=== PATIENT | female | born 1960 | race American Indian/Alaskan Native ===

== ENCOUNTER 2016-11-09 10:09 | Day surgery (SDC) | payer BC ==
[2016-05-23 16:26] VITALS: BMI 41.5
[2016-11-09] MEDS ORDERED: Sodium Chloride 0.9% 500 ML IV ONE ×2 (12:51)
[2016-11-09 13:48] VITALS: TEMP 98.9
[2016-11-09 14:05] VITALS: RESP 18; O2SAT 97
[2016-11-09 14:44] VITALS: BP 133/73; PULSE 60
== END 2016-11-09 14:35 | disposition home or self-care (01) ==
LOC: C.ENDO 10:09
PROVIDERS: ATTEND Internal Medicine Gastroenterology
DX: D12.5 Benign neoplasm of sigmoid colon (principal); K57.30 Diverticulosis of large intestine without perforation or abscess without bleeding; K64.8 Other hemorrhoids; K29.70 Gastritis, unspecified, without bleeding; K44.9 Diaphragmatic hernia without obstruction or gangrene; K29.80 Duodenitis without bleeding; Z68.41 Body mass index [BMI] 40.0-44.9, adult
CPT/HCPCS: 43239; 45388; 88305; 88342; J7040

== ENCOUNTER 2017-10-06 12:20 | Emergency (ER) | payer BC ==
[2017-10-06 12:36] VITALS: BMI 40.7
[2017-10-06 12:37] VITALS: PULSE 71; RESP 18
--- NOTE | 2017-10-06 13:21 | C.PDOC ---
History Of Present Illness 57 y/o F p/w back pain that began after a fall yesterday. She is unsure how she fell but denies that it was due to lightheadedness. She states she now has pain of the R sided back from thoracic to lumbar, which is severe, mild without movement but severe when moving in various directions. She also reports frequent urination but states that existed prior to fall yesterday. She also report L knee pain since the fall. Denies fever, vomiting, urinary or bowel incontinence or retention, motor weakness, or numbness. Chief Complaint (Nursing): Back Pain Past Medical History Vital Signs: Last Vital Signs Temp 97.4 F L 10/06/17 16:14 Pulse 71 10/06/17 16:14 Resp 18 10/06/17 16:14 BP 121/83 10/06/17 16:14 Pulse Ox 100 10/06/17 16:14 - Medical History PMH: Arthritis (LEFT KNEE ), Asthma, Back Problems, Bronchitis, Colonic Polyps, Diabetes, Gastritis (Pt denies), Pneumonia (ABOUT IN 2009) Denies: Fractures, HTN (pt denies), Hypercholesterolemia (pt denies), Hypothyroidism (pt denies), Chronic Kidney Disease Surgical History: Hernia Repair - [facility] DPT ADMINISTRATION (04/08/15) ESOPHAGOGASTRODUODENOSCOPY [EGD] W/CLOSED BIOPSY (07/12/13) Family History: States: Unknown Family Hx - Social History Hx Tobacco Use: Yes Hx Alcohol Use: Yes Hx Substance Use: No - Immunization History Hx Tetanus Toxoid Vaccination: No Hx Influenza Vaccination: No Hx Pneumococcal Vaccination: No Review Of Systems Except As Marked, All Systems Reviewed And Found Negative. Constitutional: Negative for: Fever Respiratory: Negative for: Shortness of Breath Physical Exam - Physical Exam Additional Physical Exam Comments: Gen: NAD, sitting still. Exclaims when moving. Head: Atraumatic Eyes: No scleral icterus ENT: MMM Neck: No midline tenderness Chest: No tenderness CV: Regular rate Lungs: CTA b/l Back: No edema, rash, ecchymosis, or tenderness (midline or perispinal) Abd: Soft, NT Extremities: L knee tenderness Skin: As above Neuro: Moves all extremities ED Course And Treatment O2 Sat by Pulse Oximetry: 98 Medical Decision Making Medical Decision Making: Patient took Aleve 7 hours ago. Patient does not want any narcotic medications. Left knee x-ray FINDINGS: BONES: No radiographically apparent fracture. JOINTS: Tricompartmental osteoarthritis. JOINT EFFUSION: None. OTHER FINDINGS: None. IMPRESSION: Degenerative changes. Thoracic Spine x-ray FINDINGS: BONES: Alignment maintained. No compressive deformity. DISC SPACES: Normal. SOFT TISSUES: Normal. OTHER FINDINGS: Mild degenerative changes. IMPRESSION: No compressive deformity. Degenerative changes. Ribs x-ray FINDINGS: RIGHT RIBS: No fracture or focal lesion visualized. LUNGS: Clear. PLEURA: No pneumothorax or pleural fluid. CARDIOVASCULAR: Normal sized heart. No pulmonary vascular congestion. OTHER FINDINGS: Degenerative changes of the osseous structures. IMPRESSION: Unremarkable radiographs of the chest and right ribs. No right rib fracture. Lumbar Spine x-ray FINDINGS: BONES: No apparent fracture. Degenerative changes. DISC SPACES: Mild disc space narrowing at L5-S1. OTHER FINDINGS: Facet hypertrophy. IMPRESSION: Degenerative changes. No compressive deformity. Cross sectional imaging should be obtained if symptoms persist. Disposition - Disposition Referrals: Yo Polanco MD [Staff Provider] - Disposition: HOME/ ROUTINE Disposition Time: 15:48 Condition: STABLE Prescriptions: Ketorolac Tromethamine [Toradol] 1 tab PO Q6H #20 tab Instructions: Low Back Pain (DC), Preventing Falls Forms: [facility] (Khmer), Work Excuse - Clinical Impression Clinical Impression: Back pain
[2017-10-06 13:58] LABS: SQUAMOUS EPITHIAL < 1 /hpf (0-5); URINE BILIRUBIN NEGATIVE (NEGATIVE); URINE BLOOD NEGATIVE (NEGATIVE); URINE CLARITY Clear (Clear); URINE COLOR Straw (YELLOW); URINE GLUCOSE (UA) NORMAL (Normal); URINE LEUKOCYTE ESTERASE NEG Leu/uL (Negative); URINE PROTEIN NEGATIVE (NEGATIVE); URINE UROBILINOGEN NORMAL mg/dL (0.2-1.0)
--- NOTE | 2017-10-06 14:28 | RAD ---
PROCEDURE: Left Knee Radiographs. HISTORY: Pain. COMPARISON: 11/12/2014 FINDINGS: BONES: No radiographically apparent fracture. JOINTS: Tricompartmental osteoarthritis. JOINT EFFUSION: None. OTHER FINDINGS: None. IMPRESSION: Degenerative changes.
--- NOTE | 2017-10-06 14:30 | RAD ---
PROCEDURE: Radiographs of the Chest and Right Ribs. HISTORY: fall, back pain COMPARISON: None available. TECHNIQUE: Frontal radiograph of the chest and multiple oblique radiographs of the right ribs were obtained. FINDINGS: RIGHT RIBS: No fracture or focal lesion visualized. LUNGS: Clear. PLEURA: No pneumothorax or pleural fluid. CARDIOVASCULAR: Normal sized heart. No pulmonary vascular congestion. OTHER FINDINGS: Degenerative changes of the osseous structures. IMPRESSION: Unremarkable radiographs of the chest and right ribs. No right rib fracture.
--- NOTE | 2017-10-06 14:58 | RAD ---
PROCEDURE: Radiographs of the Lumbar Spine. HISTORY: fall, back pain COMPARISON: No prior. FINDINGS: BONES: No apparent fracture. Degenerative changes. DISC SPACES: Mild disc space narrowing at L5-S1. OTHER FINDINGS: Facet hypertrophy. IMPRESSION: Degenerative changes. No compressive deformity. Cross sectional imaging should be obtained if symptoms persist.
--- NOTE | 2017-10-06 15:43 | RAD ---
HISTORY: fall, back pain COMPARISON: No prior. FINDINGS: BONES: Alignment maintained. No compressive deformity. DISC SPACES: Normal. SOFT TISSUES: Normal. OTHER FINDINGS: Mild degenerative changes. IMPRESSION: No compressive deformity. Degenerative changes.
[2017-10-06 16:15] VITALS: BP 121/83; TEMP 97.4
[2017-10-06 16:52] VITALS: O2SAT 98
== END 2017-10-06 16:15 | disposition home or self-care (01) ==
LOC: C.ER 12:20
DX: M54.9 Dorsalgia, unspecified (principal); Z72.0 Tobacco use

== ENCOUNTER 2018-03-20 14:06 | Observation (INO) | payer BC ==
[2018-03-20 14:07] VITALS: BMI 40.7
--- NOTE | 2018-03-20 14:16 | C.PDOC ---
History Of Present Illness 58yo female, history of diabetes, hypertension, asthma, hyperthyroidsm, right rotator cuff repair, presents to ER for evaluation after a witnessed syncopal episode. 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 Patient was helped to the ground and did not have a head injury; since syncopizing, staff noted that patient had right arm weakness and slurred speech. Currently, patient is with slurred speech and reports pain to right shoulder as well as weakness to right arm. Of note, patient denies any aspirin or anti-coagulant use. Time Seen by Provider: 03/20/18 14:15 Chief Complaint (Nursing): Syncope History Per: Other (hoispital staff) History/Exam Limitations: no limitations Onset/Duration Of Symptoms: Mins Number Of Syncopal Episodes: 1 Activity At Onset Of Symptoms: Standing Seizure Or Post-ictal Symptoms: None. denies: Incontinent Of Urine, Incontinent Of Stool Fall Associated With With Symptoms: No (patient helped to ground) - Symptoms Of CVA Associated Symptoms: Impaired Speech Character Of Deficits: Right: Weakness, Arm: Weakness Recent Aspirin Use: No Current Coumadin Use?: No Past Medical History Reviewed: Historical Data, Nursing Documentation, Vital Signs Vital Signs: Last Vital Signs Temp 98.8 F 03/20/18 14:09 Pulse 65 03/20/18 15:39 Resp 16 03/20/18 15:39 BP 143/87 03/20/18 15:39 Pulse Ox 100 03/20/18 16:23 - Medical History PMH: Arthritis (LEFT KNEE ), Asthma, Back Problems, Bronchitis, Colonic Polyps, Diabetes, Gastritis (Pt denies), Pneumonia (ABOUT IN 2009) Denies: Fractures, HTN (pt denies), Hypercholesterolemia (pt denies), Hypothyroidism (pt denies), Chronic Kidney Disease Surgical History: Hernia Repair - [facility] Procedures DPT ADMINISTRATION (04/08/15) ESOPHAGOGASTRODUODENOSCOPY [EGD] W/CLOSED BIOPSY (07/12/13) Family History: States: No Known Family Hx - Social History Hx Tobacco Use: Yes Hx Alcohol Use: Yes Hx Substance Use: No - Immunization History Hx Tetanus Toxoid Vaccination: No Hx Influenza Vaccination: No Hx Pneumococcal Vaccination: No Review Of Systems Review Of Systems: ROS cannot be obtained secondary to pt's inabilty to answer questions. (limited ROS due to slurred speech) Constitutional: Positive for: Other (fatigued) Musculoskeletal: Positive for: Shoulder Pain (right) Neurological: Positive for: Weakness (right arm), Change in Speech (slurred speech), Other (syncopal episode) Physical Exam - Physical Exam Appears: Non-toxic Skin: Normal Color Head: Atraumatic, Normacephalic Eye(s): bilateral: Normal Inspection, PERRL, EOMI Oral Mucosa: Moist Neck: Normal ROM, Supple Chest: Symmetrical Cardiovascular: Rhythm Regular Respiratory: Normal Breath Sounds Gastrointestinal/Abdominal: Normal Exam, Soft, No Tenderness Back: Normal Inspection Extremity: Normal ROM (Full ROM bilateral lower extremities; 5/5 motor strength) , Other (right upper extremity weakness, 3/5 strength; left upper extremity 4/5 strength.) Neurological/Psych: Oriented x3, Other (+ slurred speech; patient appears fatigued) ED Course And Treatment - Laboratory Results Result Diagrams: 03/20/18 14:34 03/20/18 14:33 ECG: Interpreted By Me, Viewed By Me ECG Rhythm: Sinus Rhythm Interpretation Of ECG: Flat T in 3. No STEMI Rate From EC O2 Sat by Pulse Oximetry: 100 (RA) Pulse Ox Interpretation: Normal - CT Scan/US CT Head w/o contrast Other Rad Studies (CT/US): Read By Radiologist, Radiology Report Reviewed CT/US Interpretation: FINDINGS: HEMORRHAGE: No intracranial hemorrhage. BRAIN : Normal jacob-white matter differentiation and density are appreciated throughout the cerebrum and cerebellum with the brainstem appearing unremarkable as well. There is no mass effect. There is no suspicious extra- axial fluid collection and the midline brain anatomy appears diffusely unremarkable. VENTRICLES: Unremarkable. No hydrocephalus. CALVARIUM: Unremarkable. PARANASAL SINUSES: Unremarkable as visualized. No significant inflammatory changes. MASTOID AIR CELLS: Unremarkable as visualized. No inflammatory changes. OTHER FINDINGS: None. IMPRESSION: Unremarkable noncontrast head CT. Follow-up CT or MRI are available as clinically warranted. Findings discussed with Dr. Membreno with written down and read back verification 03/20/2018 2:39 p.m. CTA Head and Neck Other Rad Studies (CT/US): Read By Radiologist, Radiology Report Reviewed CT/US Interpretation: FINDINGS: INTERNAL CEREBRAL ARTERIES: [id number] bilateral cavernous internal carotid artery stenoses are identified. The skull base, petrous, and supraclinoid segments are bilaterally widely patent. ANTERIOR CEREBRAL ARTERIES: Unremarkable. A1 and A2 segments are widely patent. Smaller distal branches unremarkable, as visualized. MIDDLE CEREBRAL ARTERIES: Unremarkable. M1 and M2 segments are widely patent. Perisylvian branches grossly symmetric. POSTERIOR CIRCULATION: Basilar Artery: Unremarkable. Distal Vertebral Arteries: Unremarkable. Posterior Cerebral Arteries: Unremarkable. Posterior Inferior Cerebellar Arteries: Unremarkable. NECK CTA: Common Carotid arteries: The bilateral common carotid appear widely patent from their origins to their bifurcations with no significant stenosis appreciated. No evidence to suggest common carotid artery dissection. Internal Carotid arteries: No significant stenosis is appreciated throughout the cervical internal carotid artery segments bilaterally and there is no evidence of dissection either. External Carotid arteries: Appear unremarkable bilaterally. Vertebral arteries: The bilateral vertebral arteries appear normal in caliber from their origins to their junction with the basilar artery. No significant stenosis or definite pattern of dissection. ANEURYSM/ VASCULAR MALFORMATIONS: None. OTHER FINDINGS: None. IMPRESSION: Nqji-[id number] bilateral cavernous ICA segmental stenoses are identified with CT angiography of the head and neck otherwise widely patent and otherwise unremarkable. No occlusion appreciated rTPA Inclusion/Exclusion - Refusal of Treatment Patient Refused Treatment: No - Inclusion Criteria for Altepase Patient is 18 years or Older: Yes The Clinical Diagnosis of Ischemic Stroke That is Causing a Potentially Disabling Neurological Deficit: No Time of Onset is Well Established to be Less Than 270 Minute Before Treatment Would Begin: Yes Risk/Benefit Discussed With Patient/Family Member Present: Yes Medical Decision Making Medical Decision Makin Case discussed with Resident Real, working under Dr. Wiley who will evaluate patient after CT scan. 1528 Appreciate bedside consult w/ Dr. Wiley (Neuro): ASA, Plavix, No TPA at this point given high likelyhood of seizures in pt, Pt to EEG, admission. 1610 XR checst results: Negative, will page pmd for admission 1621 Pending R Shoulder. NV intact, able to touch L shoulder w/ R arm. Appreciate consult w/ Dr. Polanco: endorsed findings, we are to admit under obs under his service. Disposition - Disposition Disposition Time: 16:20 Condition: GOOD - Clinical Impression Clinical Impression: Syncope - Scribe Statement The provider has reviewed the documentation as recorded by the Uzma Leiva Provider Attestation: All medical record entries made by the Uzma were at my direction and personally dictated by me. I have reviewed the chart and agree that the record accurately reflects my personal performance of the history, physical exam, medical decision making, and the department course for this patient. I have also personally directed, reviewed, and agree with the discharge instructions and disposition. NIHSS Stroke Scale - Date/Time Evaluation Performed Date Performed: 03/20/18 When Was NIHSS Performed: Baseline - How Severe is the Stoke Level of Consciousness: 1=Drowsy LOC to Questions: 0=Both comments correct LOC to commands: 0=Obeys both correctly Best Gaze: 0=Normal Visual: 0=No visual loss Facial: 0=Normal Motor Arm - Left: 0=No drift Motor Arm - Right: 1=Drift noted before 10 sec Motor Leg - Left: 0=No drift Motor Leg - Right: 0=No drift Limb Ataxia: 0=Absent Sensory: 0=Normal Best Language: 1=Mild to moderate aphasia Dysarthia: 1=Mild to moderate slurring Extinction & Inattention (Neglect): 0=Normal, no object Score: 4 Severity Of Stroke: 1-4= Minor Stroke
[2018-03-20] MEDS ORDERED: Sodium Chloride 0.9% 1,000 ML IV SCH (14:30)
--- NOTE | 2018-03-20 14:33 | CP.PCM.CON ---
History of Present Illness - History of Present Illness History of Present Illness: Neurology Consult Note - Dr Inez STRAUSS STROKE Patient is a 58 year old female with past medical history of HTN, hypercholesterolemia, DM, asthma who presented to the ED for syncopal episode. 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 Patient was talking to a co-worker when she stated that she didn't feel well, passed out. Per her co-worker, patient had a syncopal episode where he helped guide her to the floor. When on the floor, the co-worker stated that the patient was confused, didn't recognize those who came to her aid and was combative and trying to get up. Witnesses denied any shaking, tongue biting, loss of bowel or bladder function. Since the syncopal episode, staff noted that patient had right arm weakness and slurred speech. Patient was placed on the stretcher on brought to the ED. Patient's daughter was at the bedside supplementing the history. She states that the patient has been having intermittent slurred speech for awhile. However her speech today is worse. When asked in the ED, patient states that she felt like she was about to pass out, and doesn't remember what happened after that. Patient is complaining of right arm pain, she states that the pain has been gradually worsening for the past 3-4 days. She has been taking NSAIDS for the pain. Patient denies any trauma. Allergies: acetaminophen, oxycodone, morphine Medical History: HTN, Hypercholesterolemia, DM, asthma Surgical History: Umbilical hernia repair, rotator cuff repair Social History: Former smoker, drinks alcohol, denies substance abuse Past Patient History - Infectious Disease Hx of Infectious Diseases: None - Past Medical History & Family History Past Medical History?: Yes - Past Social History Smoking Status: Former Smoker - CARDIAC Hx Hypercholesterolemia: No (pt denies) Hx Hypertension: No (pt denies) - PULMONARY Hx Asthma: Yes Hx Bronchitis: Yes Hx Pneumonia: Yes (ABOUT IN 2009) - NEUROLOGICAL Hx Neurological Disorder: Yes Hx Syncope: Yes - HEENT Hx HEENT Problems: No - RENAL Hx Chronic Kidney Disease: No - ENDOCRINE/METABOLIC Hx Hypothyroidism: No (pt denies) - HEMATOLOGICAL/ONCOLOGICAL Hx Blood Disorders: Yes Hx Hepatitis A: Yes (FROM [place]) - INTEGUMENTARY Hx Dermatological Problems: No - MUSCULOSKELETAL/RHEUMATOLOGICAL Hx Arthritis: Yes (LEFT KNEE ) Hx Fractures: No - GASTROINTESTINAL Hx Gastritis: Yes (Pt denies) - GENITOURINARY/GYNECOLOGICAL Hx Genitourinary Disorders: No - PSYCHIATRIC Hx Substance Use: No - SURGICAL HISTORY Hx Surgeries: Yes Hx Herniorrhaphy: Yes (UMBILICAL HERNIA REPAIR) Hx Musculoskeletal Surgery: Yes Hx Orthopedic Surgery: Yes Other/Comment: LEFT ROTATOR CUFF REPAIR. REMOVAL UTERINE FIBROID. 07/2016- INJECTION TO LEFT KNEE BY DR. GREEN - ANESTHESIA Hx Anesthesia: Yes Hx Anesthesia Reactions: No Hx Malignant Hyperthermia: No Meds Allergies/Adverse Reactions: Allergies Allergy/AdvReac Type Severity Reaction Status Date / Time acetaminophen [From Percocet] Allergy Severe NAUSEA/VOMI Verified 10/06/17 12:36 TING oxycodone HCl [From Percocet] Allergy Severe NAUSEA/VOMI Verified 10/06/17 12:36 TING morphine AdvReac Severe NAUSEA/VOMI Verified 10/06/17 12:36 TING - Medications Medications: Current Medications Sodium Chloride (Sodium Chloride 0.9%) 1,000 mls @ 100 mls/hr IV .Q10H RM Physical Exam - Constitutional Appears: Non-toxic - Head Exam Head Exam: ATRAUMATIC, NORMAL INSPECTION - Eye Exam Eye Exam: EOMI, Normal appearance - ENT Exam ENT Exam: Mucous Membranes Moist - Respiratory Exam Respiratory Exam: NORMAL BREATHING PATTERN - Cardiovascular Exam Cardiovascular Exam: REGULAR RHYTHM - Extremities Exam Extremities exam: Positive for: normal inspection - Neurological Exam Neurological exam: Alert, Oriented x3 Additional comments: Patient with word recall difficulty - Psychiatric Exam Psychiatric exam: Anxious - Skin Skin Exam: Normal Color, Warm Results - Vital Signs Recent Vital Signs: Last Vital Signs Temp 98.8 F 03/20/18 14:09 Pulse 73 03/20/18 14:09 Resp 18 03/20/18 14:09 BP 175/93 H 03/20/18 14:09 Pulse Ox 100 03/20/18 14:28 - Labs Result Diagrams: 03/20/18 14:34 03/20/18 14:33 Labs: Laboratory Results - last 24 hr 03/20/18 14:19 POC Glucose (mg/dL) 86 Assessment & Plan - Assessment and Plan (Free Text) Assessment: Syncope, r/o Neurogenic causes -Stable, afebrile -In ED, patient received loading dose of Plavix and ASA -CT head unremarkable -CTA head/neck showed mild to moderate bilateral cavernous ICA segmental stenoses are identified with CT angiography of the head and neck otherwise widely patent and otherwise unremarkable. No occlusion appreciated throughout -MRI brain with and without contrast -Allow for permissive hypertension x 24 hours, treat only for BP>220/110 -Syncopal episode could possibly be due to seizures -Patient denies any history of seizure disorder -Will also order EEG -Seizure precautions -Neuro checks Q4H Right arm pain -Recommend shoulder xray to r/o dislocation/fracture Plan discussed with Dr Inez Noble DO PGY-2 NIHSS Stroke Scale - Date/Time Evaluation Performed Date Performed: 03/20/18 Time Performed: 15:30 - How Severe is the Stroke Level of Consciousness: 0=Alert LOC to Questions: 0=Both comments correct LOC to commands: 0=Obeys both correctly Best Gaze: 0=Normal Visual: 0=No visual loss Facial: 0=Normal Motor Arm - Left: 0=No drift Motor Arm - Right: 0=No drift Motor Leg - Left: 0=No drift Motor Leg - Right: 0=No drift Limb Ataxia: 0=Absent Sensory: 0=Normal Best Language: 1=Mild to moderate aphasia (patient with word recall difficulty) Dysarthia: 0=Normal articulation Extinction & Inattention (Neglect): 0=Normal, no object Score: 1
[2018-03-20 14:40] LABS: BASO # 0.1 K/uL (0.0-0.2); BASO % 0.8 % (0.0-2.0); EOS # 0.1 K/uL (0.0-0.7); EOS % 0.9 % (0.0-4.0); HEMOGLOBIN 11.9 g/dL (11.0-16.0); LYMPH # 2.3 K/uL (1.0-4.3); LYMPH % 29.3 % (20.0-40.0); MEAN CELL VOLUME 83.4 fL (81.0-99.0); MEAN CORPUSCULAR HEMOGLOBIN 28.9 pg (27.0-31.0); MEAN CORPUSCULAR HGB CONC 34.7 g/dL (33.0-37.0); MEAN PLATELET VOLUME 9.8 fL (7.2-11.7); MONO # 0.4 K/uL (0.0-0.8); MONO % 5.6 % (0.0-10.0); NEUT % 63.4 % (50.0-75.0); NRBC % 0.1 % (0.0-2.0); RBC 4.12 Mil/uL (3.80-5.20); RED CELL DISTRIBUTION WIDTH 16.4 % (11.5-14.5)
--- NOTE | 2018-03-20 14:45 | CT ---
Date of service: 03/20/2018 PROCEDURE: CT HEAD WITHOUT CONTRAST. HISTORY: Code Stroke COMPARISON: None available. TECHNIQUE: Axial computed tomography images were obtained through the head/brain without intravenous contrast. Radiation dose: Total exam DLP = 1103.92 mGy-cm. This CT exam was performed using one or more of the following dose reduction techniques: Automated exposure control, adjustment of the mA and/or kV according to patient size, and/or use of iterative reconstruction technique. FINDINGS: HEMORRHAGE: No intracranial hemorrhage. BRAIN: Normal jacob-white matter differentiation and density are appreciated throughout the cerebrum and cerebellum with the brainstem appearing unremarkable as well. There is no mass effect. There is no suspicious extra-axial fluid collection and the midline brain anatomy appears diffusely unremarkable. VENTRICLES: Unremarkable. No hydrocephalus. CALVARIUM: Unremarkable. PARANASAL SINUSES: Unremarkable as visualized. No significant inflammatory changes. MASTOID AIR CELLS: Unremarkable as visualized. No inflammatory changes. OTHER FINDINGS: None. IMPRESSION: Unremarkable noncontrast head CT. Follow-up CT or MRI are available as clinically warranted. Findings discussed with Dr. Membreno with written down and read back verification 03/20/2018 2:39 p.m.
[2018-03-20] MEDS ORDERED: Iodixanol 320 mg/ml 150 ml Bottle IV ONE (14:46)
[2018-03-20 14:48] LABS: INR 1.2; PROTHROMBIN TIME 12.6 SECONDS (9.7-12.2)
[2018-03-20 14:50] LABS: ALB/GLOB RATIO 1.5 (1.0-2.1); ALT/SGPT 35 U/L (9-52); AST/SGOT 34 U/L (14-36); BLOOD UREA NITROGEN 9 mg/dL (7-17); CALCIUM 9.2 mg/dl (8.6-10.4); GFR NON-AFRICAN AMERICAN > 60; HDL CHOLESTEROL 53 mg/dL (30-70)
[2018-03-20 15:01] LABS: LDL CHOLESTEROL 74 mg/dL (0-129)
--- NOTE | 2018-03-20 15:46 | CT ---
Date of service: 03/20/2018 PROCEDURE: CT Angiography of the Brain. HISTORY: RUE weakness, slurred speech COMPARISON: None available. TECHNIQUE: CT angiography of the intracranial and neck arteries was performed. Coronal and sagittal maximum intensity projection reformated images were generated. Contrast Dose: Visipaque 320, 100 cc Radiation dose:Total exam DLP = 675.63 mGy-cm. This CT exam was performed using one or more of the following dose reduction techniques: Automated exposure control, adjustment of the mA and/or kV according to patient size, and/or use of iterative reconstruction technique. This CT exam was performed using one or more of the following dose reduction techniques: Automated exposure control, adjustment of the mA and/or kV according to patient size, and/or use of iterative reconstruction technique. FINDINGS: INTERNAL CEREBRAL ARTERIES: [id number] bilateral cavernous internal carotid artery stenoses are identified. The skull base, petrous, and supraclinoid segments are bilaterally widely patent. ANTERIOR CEREBRAL ARTERIES: Unremarkable. A1 and A2 segments are widely patent. Smaller distal branches unremarkable, as visualized. MIDDLE CEREBRAL ARTERIES: Unremarkable. M1 and M2 segments are widely patent. Perisylvian branches grossly symmetric. POSTERIOR CIRCULATION: Basilar Artery: Unremarkable. Distal Vertebral Arteries: Unremarkable. Posterior Cerebral Arteries: Unremarkable. Posterior Inferior Cerebellar Arteries: Unremarkable. NECK CTA: Common Carotid arteries: The bilateral common carotid appear widely patent from their origins to their bifurcations with no significant stenosis appreciated. No evidence to suggest common carotid artery dissection. Internal Carotid arteries: No significant stenosis is appreciated throughout the cervical internal carotid artery segments bilaterally and there is no evidence of dissection either. External Carotid arteries: Appear unremarkable bilaterally. Vertebral arteries: The bilateral vertebral arteries appear normal in caliber from their origins to their junction with the basilar artery. No significant stenosis or definite pattern of dissection. ANEURYSM/ VASCULAR MALFORMATIONS: None. OTHER FINDINGS: None. IMPRESSION: [id number] bilateral cavernous ICA segmental stenoses are identified with CT angiography of the head and neck otherwise widely patent and otherwise unremarkable. No occlusion appreciated throughout.
[2018-03-20] MEDS ORDERED: Sodium Chloride 0.9% 1,000 ML ONE (15:50)
[2018-03-20] MEDS ORDERED: Gadodiamide 287 mg/ml 20 ml IV ONE (16:45)
--- NOTE | 2018-03-20 16:46 | RAD ---
Date of service: 03/20/2018 PROCEDURE: Radiographs of the Right Shoulder HISTORY: rue pain COMPARISON: No prior. FINDINGS: BONES: No fracture appreciated. Confluent intra osseous and subcortical cystic changes of the humeral head noted. JOINTS: . Glenohumeral and acromioclavicular osteoarthritis. The right humeral head on frontal views projects over the inferior aspect of the glenohumeral joint. On the transscapular view no gross dislocation appreciated. SOFT TISSUES: Normal. OTHER FINDINGS: On the transscapular Y-view, the right hilum appears prominent this could be technical this is less conspicuous on the same-day portable chest x-ray. IMPRESSION: Arthrosis as above. No fracture.
--- NOTE | 2018-03-20 17:13 | MRI ---
Date of service: 03/20/2018 PROCEDURE: MRI BRAIN WITH AND WITHOUT CONTRAST HISTORY: r/o mass possible new onset seizures COMPARISON: None available. TECHNIQUE: Multiplanar, multisequence MR images of the brain were obtained with and without intravenous contrast enhancement. FINDINGS: HEMORRHAGE: None DWI: No evidence of an acute or early subacute infarction. BRAIN PARENCHYMA: Intrinsic signal throughout the jacob and white matter structures above below the tentorium appears within normal limits including the brainstem. There is no mass effect, parenchymal edema or loss of the corticomedullary differentiation. Midline brain anatomy appears within normal limits including the corpus callosum, brainstem and craniocervical junction. High-resolution imaging through the temporal lobes is unremarkable bilaterally. There is no suspicious extra-axial fluid collection identified. No significant interval change appreciated. ENHANCEMENT: No abnormal intracranial enhancement. VENTRICLES: Unremarkable. No hydrocephalus. CRANIUM: Unremarkable. ORBITS: Grossly unremarkable. PARANASAL SINUSES/MASTOIDS: Clear VASCULAR SYSTEM: Skull base flow voids intact. OTHER FINDINGS: None . IMPRESSION: Stable, unremarkable pre and post contrast enhanced MRI of the brain. No abnormal intracranial enhancement.
--- NOTE | 2018-03-20 17:46 | RAD ---
Date of service: 03/20/2018 HISTORY: Code Stroke COMPARISON: Right ribs with chest 10/06/2017. FINDINGS: LUNGS: No active pulmonary disease. PLEURA: No significant pleural effusion identified, no pneumothorax apparent. CARDIOVASCULAR: Normal. OSSEOUS STRUCTURES: No significant abnormalities. VISUALIZED UPPER ABDOMEN: Normal. OTHER FINDINGS: None. IMPRESSION: No interval acute cardiopulmonary disease appreciated.
--- NOTE | 2018-03-20 19:38 | CP.PCM.HP ---
History of Present Illness - History of Present Illness History of Present Illness: Chief complaint: Patient passed out while working HPI: 58-year-old female with a history of hypertension in the past and hypothyroidism , recurrent history of muscle spasm and pain, chronic lower back pain, taking pain medications, as well as antispasmodic. Patient came to the work today as usual. While she was working, she feels like she was weak and was not feeling well. While she was trying to reach something, she almost passed out and briefly lost consciousness and fell on the floor, was a coworker next to her. Patient did not have any injuries. Immediately patient regained consciousness, after that the patient did not have any headache, no nausea no other symptoms. Patient is combining of pain over the right shoulder for almost a week now. Patient is not able to lift the right shoulder, severe pain and tenderness in the right shoulder extending from the neck all the way to the elbow Severe restrictive movements of the right shoulder noted. She was not able to sleep because of the pain for one week. She did not have any injury or fall According to the patient's daughter she was having a few episodes of dizzy spells like that in the past while she was walking at least 3-4 episodes, she suddenly loses consciousness, but she regains without any major symptoms. Patient does not have urinary incontinence, no tongue biting. Even today this symptoms did not exist. Now patient is feeling well. She is having no headache. But comparing of right shoulder pain unable to move. She was also having some stuttering speech sometimes even in the past, but more noticed today Past medical history: Patient has a history of hypertension, hypothyroid examined bronchial asthma in the past Surgical history: Patient had a rotator cuff problem in the past surgical intervention for that Medical hernia repaired Fibroid uterus Left at least and in the past Family history: Father at age of 72 natural cause mother had a history of asthma diabetes and hypertension sister is alive and has a history of diabetes Patient is a current everyday smoker almost one pack. Drinks coffee daily social drinks alcohol Patient's current medications include ibuprofen, Flexeril. Review of system: Patient is having no headache at this time comparing of right shoulder pain, unable to move the right shoulder. Patient has no headache no nausea vomiting no other systemic symptoms comparing of left lower extremity numbness patient has this symptom for quite some time. On examination: Vital signs stable. Temperature 98.8 Blood pressure 173/93, current blood pressure 132/82 Chest bilateral good air entry Regular heart sound. Nontender abdomen. No pedal edema. Right shoulder severe restrictive right abduction of the shoulder noted, internal rotation, abduction and external rotation is severely restricted. Severe tenderness in the rotator cuff region especially in the anterior aspect noted Labs are all nonspecific. Patient had a CT of the head negative for stroke. CT angiogram negative Patient also had MRI of the head with contrast and without contrast in no acute pathology identified Chest x-ray nonspecific EKG nonspecific Assessment and recommend she and: 58-year-old female now admitted with syncopal episode, unclear source. Unclear etiology Patient has a severe myoclonic jerks, and also having stuttering speech. Left lower extremity numbness and tingling, peripheral neuropathy likely, sciatica possible. Patient suspected having frequent episodes of fall unclear. Syncopal attack likely. 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 I advised the patient to stay in the hospital, further workup, inpatient including EEG, neurological evaluation and follow-up Cardiology evaluation and follow-up Patient may need outpatient ambulatory we will continue to monitor the patient. Spoke to the patient's family and will follow-up the patient evaluation for seizure activities and arrhythmias. Present on Admission - Present on Admission Any Indicators Present on Admission: No History of DVT/PE: No History of Uncontrolled Diabetes: No Urinary Catheter: No Decubitus Ulcer Present: No Past Patient History - Infectious Disease Hx of Infectious Diseases: None - Past Medical History & Family History Past Medical History?: Yes - Past Social History Smoking Status: Former Smoker - CARDIAC Hx Hypercholesterolemia: No (pt denies) Hx Hypertension: No (pt denies) - PULMONARY Hx Asthma: Yes Hx Bronchitis: Yes Hx Pneumonia: Yes (ABOUT IN 2009) - NEUROLOGICAL Hx Neurological Disorder: Yes Hx Syncope: Yes - HEENT Hx HEENT Problems: No - RENAL Hx Chronic Kidney Disease: No - ENDOCRINE/METABOLIC Hx Hypothyroidism: No (pt denies) - HEMATOLOGICAL/ONCOLOGICAL Hx Blood Disorders: Yes Hx Hepatitis A: Yes (FROM [place]) - INTEGUMENTARY Hx Dermatological Problems: No - MUSCULOSKELETAL/RHEUMATOLOGICAL Hx Arthritis: Yes (LEFT KNEE ) Hx Fractures: No - GASTROINTESTINAL Hx Gastritis: Yes (Pt denies) - GENITOURINARY/GYNECOLOGICAL Hx Genitourinary Disorders: No - PSYCHIATRIC Hx Substance Use: No - SURGICAL HISTORY Hx Surgeries: Yes Hx Herniorrhaphy: Yes (UMBILICAL HERNIA REPAIR) Hx Musculoskeletal Surgery: Yes Hx Orthopedic Surgery: Yes Other/Comment: LEFT ROTATOR CUFF REPAIR. REMOVAL UTERINE FIBROID. 07/2016- INJECTION TO LEFT KNEE BY DR. GREEN - ANESTHESIA Hx Anesthesia: Yes Hx Anesthesia Reactions: No Hx Malignant Hyperthermia: No Meds Allergies/Adverse Reactions: Allergies Allergy/AdvReac Type Severity Reaction Status Date / Time acetaminophen [From Percocet] Allergy Severe NAUSEA/VOMI Verified 10/06/17 12:36 TING oxycodone HCl [From Percocet] Allergy Severe NAUSEA/VOMI Verified 10/06/17 12:36 TING morphine AdvReac Severe NAUSEA/VOMI Verified 10/06/17 12:36 TING Results - Vital Signs Recent Vital Signs: Last Vital Signs Temp 98.8 F 03/20/18 14:09 Pulse 66 03/20/18 17:05 Resp 18 03/20/18 17:05 BP 132/82 03/20/18 17:05 Pulse Ox 100 03/20/18 17:05 - Labs Result Diagrams: 03/20/18 14:34 03/20/18 14:33 Labs: Laboratory Results - last 24 hr 03/20/18 03/20/18 03/20/18 14:19 14:33 14:33 WBC RBC Hgb Hct MCV MCH MCHC RDW Plt Count MPV Neut % (Auto) Lymph % (Auto) [place] % (Auto) Eos % (Auto) Baso % (Auto) Neut # (Auto) Lymph # (Auto) [place] # (Auto) Eos # (Auto) Baso # (Auto) PT 12.6 H INR 1.2 APTT 35 H Sodium 144 Potassium 3.9 Chloride 108 H Carbon Dioxide 29 Anion Gap 11 BUN 9 Creatinine 0.8 Est GFR ( Amer) > 60 Est GFR (Non-Af Amer) > 60 POC Glucose (mg/dL) 86 Random Glucose 87 Hemoglobin A1c Calcium 9.2 Total Bilirubin 0.4 AST 34 ALT 35 Alkaline Phosphatase 65 Troponin I < 0.0120 Total Protein 6.6 Albumin 4.0 Globulin 2.6 Albumin/Globulin Ratio 1.5 Triglycerides 95 Cholesterol 154 LDL Cholesterol Direct 74 HDL Cholesterol 53 Blood Type Antibody Screen 03/20/18 03/20/18 03/20/18 14:33 14:34 15:29 WBC 8.0 RBC 4.12 Hgb 11.9 Hct 34.3 MCV 83.4 MCH 28.9 MCHC 34.7 RDW 16.4 H Plt Count 211 MPV 9.8 Neut % (Auto) 63.4 Lymph % (Auto) 29.3 [place] % (Auto) 5.6 Eos % (Auto) 0.9 Baso % (Auto) 0.8 Neut # (Auto) 5.0 Lymph # (Auto) 2.3 [place] # (Auto) 0.4 Eos # (Auto) 0.1 Baso # (Auto) 0.1 PT INR APTT Sodium Potassium Chloride Carbon Dioxide Anion Gap BUN Creatinine Est GFR ( Amer) Est GFR (Non-Af Amer) POC Glucose (mg/dL) Random Glucose Hemoglobin A1c 5.1 Calcium Total Bilirubin AST ALT Alkaline Phosphatase Troponin I Total Protein Albumin Globulin Albumin/Globulin Ratio Triglycerides Cholesterol LDL Cholesterol Direct HDL Cholesterol Blood Type B POSITIVE Antibody Screen Negative
[2018-03-20 20:24] LABS: BASO # 0.1 K/uL (0.0-0.2); BASO % 0.7 % (0.0-2.0); EOS # 0.2 K/uL (0.0-0.7); HEMOGLOBIN 11.5 g/dL (11.0-16.0); LYMPH # 3.4 K/uL (1.0-4.3); LYMPH % 39.2 % (20.0-40.0); MEAN CELL VOLUME 83.6 fL (81.0-99.0); MEAN CORPUSCULAR HEMOGLOBIN 28.2 pg (27.0-31.0); MEAN CORPUSCULAR HGB CONC 33.7 g/dL (33.0-37.0); MONO # 0.3 K/uL (0.0-0.8); MONO % 3.8 % (0.0-10.0); NEUT # 4.7 K/uL (1.8-7.0); NEUT % 54.3 % (50.0-75.0); NRBC % 0.1 % (0.0-2.0); RBC 4.09 Mil/uL (3.80-5.20); RED CELL DISTRIBUTION WIDTH 16.4 % (11.5-14.5); WHITE BLOOD COUNT 8.7 K/uL (4.8-10.8)
[2018-03-20 20:42] LABS: ALB/GLOB RATIO 1.4 (1.0-2.1); ALBUMIN 3.7 g/dL (3.5-5.0); ALT/SGPT 31 U/L (9-52); AST/SGOT 35 U/L (14-36); BLOOD UREA NITROGEN 12 mg/dL (7-17); GFR NON-AFRICAN AMERICAN > 60; URIC ACID 5.2 mg/dL (2.2-7.5)
[2018-03-20 22:18] VITALS: RESP 20
[2018-03-21 08:08] LABS: HDL CHOLESTEROL 44 mg/dL (30-70)
[2018-03-21 08:12] VITALS: O2SAT 100
[2018-03-21 08:18] LABS: LDL CHOLESTEROL 75 mg/dL (0-129)
[2018-03-21] MEDS ORDERED: Divalproex 500 mg ER Tab PO ONE (11:30)
--- NOTE | 2018-03-21 14:13 | CP.PCM.PN ---
Subjective - Date & Time of Evaluation Date of Evaluation: 03/21/18 Time of Evaluation: 14:12 - Subjective Subjective: Neurology Progress Note - Dr Fregoso Patient seen and examined at bedside. Per nursing no acute events overnight. Patient reports having right shoulder pain, toradol gives some relief. Denies any periods of confusion or seizure activity. Offers no other complaints at this time. Objective - Vital Signs/Intake and Output Vital Signs (last 24 hours): Temp Pulse Resp BP Pulse Ox 97.5 F L 54 L 20 170/84 H 100 03/21/18 07:00 03/21/18 07:57 03/21/18 07:00 03/21/18 07:00 03/21/18 07:00 - Medications Medications: Current Medications Aspirin (Aspirin Chewable) 81 mg PO DAILY [facility] Last Admin: 03/21/18 10:17 Dose: 81 mg Divalproex Sodium (Depakote Dr) 500 mg PO BID [facility] Heparin Sodium (Porcine) (Heparin) 5,000 units SC Q8 [facility] Last Admin: 03/21/18 13:41 Dose: 5,000 units Ketorolac Tromethamine (Toradol) 15 mg IVP Q6 PRN PRN Reason: Pain, moderate (4-7) Last Admin: 03/21/18 13:38 Dose: 15 mg Pantoprazole Sodium (Protonix Inj) 40 mg IVP DAILY [facility] Last Admin: 03/21/18 10:17 Dose: 40 mg - Labs Labs: 03/20/18 20:20 03/20/18 20:20 PT 12.6 SECONDS (9.7-12.2) H 03/20/18 14:33 INR 1.2 03/20/18 14:33 APTT 35 SECONDS (21-34) H 03/20/18 14:33 - Head Exam Head Exam: ATRAUMATIC, NORMAL INSPECTION - Eye Exam Eye Exam: EOMI, Normal appearance - ENT Exam ENT Exam: Mucous Membranes Moist - Respiratory Exam Respiratory Exam: NORMAL BREATHING PATTERN - Cardiovascular Exam Cardiovascular Exam: REGULAR RHYTHM - Extremities Exam Additional comments: Limited ROM of right arm secondary to pain - Neurological Exam Neurological Exam: Alert, Awake, CN II-XII Intact, Normal Gait, Oriented x3 - Psychiatric Exam Psychiatric exam: Normal Affect, Normal Mood - Skin Skin Exam: Dry, Normal Color, Warm Assessment and Plan - Assessment and Plan (Free Text) Assessment: Syncope, r/o Neurogenic causes -Stable, afebrile -In ED, patient received loading dose of Plavix and ASA -CT head unremarkable -CTA head/neck showed mild to moderate bilateral cavernous ICA segmental stenoses are identified with CT angiography of the head and neck otherwise widely patent and otherwise unremarkable. No occlusion appreciated throughout -MRI brain with and without contrast was unremarkable -Allow for permissive hypertension x 24 hours, treat only for BP>220/110 -Syncopal episode could possibly be due to seizures -Patient denies any history of seizure disorder -Depakote 1000mg PO x 1 dose, then continue 500mg PO BID -EEG and echocardiogram pending -Seizure precautions -Neuro checks Q4H Right arm pain -Shoulder MRI pending Plan discussed with Dr Inez Noble DO PGY-2
--- NOTE | 2018-03-21 15:30 | CARD ---
APPROVED REPORT Date of service: 03/21/2018 EXAM: Two-dimensional and M-mode echocardiogram with Doppler and color Doppler. Other Information Quality : GoodRhythm : INDICATION Dizziness and Vertigo Syncope RISK FACTORS Hypertension Hyperlipidemia Smoking 2D DIMENSIONS IVSd1.2 (0.7-1.1cm)Aortic Root (2D)2.9 (2.0-3.7cm) LVDd4.6 (3.9-5.9cm)PWd1.1 (0.7-1.1cm) LVDs2.9 (2.5-4.0cm)FS (%) 37.8 % LVEF (%)68.0 (>50%) M-Mode DIMENSIONS RVDd1.40 (2.1-3.2cm)Left Atrium (MM)3.02 (2.5-4.0cm) IVSd0.94 (0.7-1.1cm)Aortic Root2.98 (2.2-3.7cm) LVDd5.01 (4.0-5.6cm)Aortic Cusp Exc.1.92 (1.5-2.0cm) PWd1.00 (0.7-1.1cm)FS (%) 42 % LVDs2.90 (2.0-3.8cm)TAPSE23.95 cm LVEF (%)73 (>50%) Mitral Valve MV E Hezlldox942.5cm/sMV A Qocbwcsy05.4cm/sE/A ratio1.4 TDI E/Lateral E'0.0E/Medial E'0.0 Tricuspid Valve TR Peak [id number]/sTR Peak Gr.[id number] LEFT VENTRICLE The left ventricle is normal size. There is normal left ventricular wall thickness. The left ventricular function is normal. The left ventricular ejection fraction is within the normal range. No regional wall motion abnormalities noted. The left ventricular diastolic function is normal. RIGHT VENTRICLE The right ventricle is normal size. There is normal right ventricular wall thickness. The right ventricular systolic function is normal. ATRIA The left atrium size is normal. The right atrium size is normal. The interatrial septum is intact with no evidence for an atrial septal defect. AORTIC VALVE The aortic valve is normal in structure and function. No aortic regurgitation is present. There is no aortic valvular stenosis. MITRAL VALVE The mitral valve is normal in structure and function. Mitral regurgitation is trace. TRICUSPID VALVE The tricuspid valve is normal in structure and function. There is trace to mild tricuspid regurgitation. Right ventricular systolic pressure is estimated at less than 30 mmHg. PULMONIC VALVE The pulmonary valve is normal in structure and function. There is trace pulmonic valvular regurgitation. GREAT VESSELS The aortic root is normal in size. The ascending aorta is normal in size. The IVC is normal in size and collapses >50% with inspiration. PERICARDIAL EFFUSION The pericardium appears normal. <Conclusion> Normal bi-ventricular function. No significant valvular abnormality. No pericardial effusion.
[2018-03-21 15:48] VITALS: BP 152/98; PULSE 61; TEMP 98.2
--- NOTE | 2018-03-21 16:42 | MRI ---
Date of service: 03/21/2018 PROCEDURE: MRI Right Shoulder TECHNIQUE: Multiecho multiplanar sequences were performed through the right shoulder. No intravenous contrast. HISTORY: Pain. COMPARISON: None. FINDINGS: SUPRASPINATUS TENDON: Bursal surface tear distal tendon. INFRASPINATUS TENDON: Prominent distal tendon tendinosis signal changes. TERES MINOR TENDON: No tear identified. SUBSCAPULARIS TENDON: Tendinosis signal patter without acute tear identified. PROXIMAL PORTION OF THE LONG HEAD OF THE BICEPS TENDON: Distal tendinosis signal pattern near its insertion. Further, surrounding fluid suggests tenosynovitis as well. GLENOID LABRUM: No definite acute labral tear identified. JOINT EFFUSION: A moderate joint effusion is identified extending into the axillary pouch. There is also moderate subacromial, subdeltoid bursitis. ACROMIOCLAVICULAR JOINT SPACE: Prominent degenerative changes seen the acromioclavicular joint which are predominantly cephalad rather than caudad. Limited encroachment of the distal supraspinatus myotendon is identified. OSSEOUS STRUCTURES: No fracture or bone contusion. Subchondral cyst development is occurring at the inferior portions of the glenoid rim related to advanced osteoarthritis. Articular cortical sclerosis is moderate at both sides of the joint with limited inferior osteophyte development present. OTHER FINDINGS: None. IMPRESSION: 1. Bursal surface tear mid supraspinatus tendon. 2. Tendinosis related signal changes seen related to the infra spinatus, sub scapularis and distal biceps tendons. 3. Tenosynovitis biceps tendon. 4. Advanced degenerative joint disease glenohumeral joint with moderate glenohumeral joint effusion present. Subacromial subdeltoid bursitis as discussed above.
--- NOTE | 2018-03-21 17:14 | CARD ---
APPROVED REPORT Date of service: 03/20/2018 EKG Measurement Heart [id number] <Conclusion> Normal sinus rhythm Nonspecific T wave abnormality Abnormal ECG
[2018-03-21] MEDS ORDERED: Divalproex 500 mg DR Tab PO SCH (18:00)
[2018-03-21 18:20] LABS: LYME IGG NEGATIVE (NEGATIVE)
[2018-03-21 18:58] LABS: LYME IGM NEGATIVE (NEGATIVE)
== END 2018-03-21 21:05 | disposition home or self-care (01) ==
LOC: C.ER 14:06 → C.9E 16:16 → C.6T 20:59
PROVIDERS: ADMIT Internal Medicine; ATTEND Internal Medicine
DX: R55 Syncope and collapse (principal); W18.30XA Fall on same level, unspecified, initial encounter; I10 Essential (primary) hypertension; J45.909 Unspecified asthma, uncomplicated; R47.81 Slurred speech; M25.511 Pain in right shoulder; M17.12 Unilateral primary osteoarthritis, left knee; F17.210 Nicotine dependence, cigarettes, uncomplicated; Y92.234 Operating room of hospital as the place of occurrence of the external cause; Y99.0 Civilian activity done for income or pay
CPT/HCPCS: 36415; 70450; 70496; 70498; 70552; 71045; 73030; 73221; 80053; 80061; 82948; 83036; 84443; 84484; 84550; 85025; 85610; 85651; 85730; 86038; 86430; 86618; 86850; 86900; 93005; 93306; 94770; 95812; 96372; 96374; 99285; A9579; C9113; G0378; J1644; J1885; J7030; Q9967

== ENCOUNTER 2018-11-22 07:25 | Outpatient (CLI) | payer BC | END 2018-11-22 07:26 | disposition home or self-care (01) | LOC: C.LAB 07:25 | DX: Z01.818 Encounter for other preprocedural examination (principal) ==